=== PATIENT | female | born 1970 | race Caucasian/White ===

== ENCOUNTER 2016-09-06 17:44 | Emergency (ER) | payer MEDICAID ==
[~2016-09-06] VITALS: Ht 157.5 cm; Wt 86.8 kg
[~2016-09-06 17:44] MED LIST: NOCURR
[2016-09-06 19:07] VITALS: BP 116/93
[2016-09-06] MEDS ORDERED: KETOROLAC TROMETHAMINE 60 MG/2 ML VIAL IM ONE (19:30)
== END 2016-09-06 19:59 | disposition home or self-care (01) ==
LOC: EMS 17:45
DX: S16.1XXA Strain of muscle, fascia and tendon at neck level, initial encounter (principal); Z88.1 Allergy status to other antibiotic agents; Z87.891 Personal history of nicotine dependence; V49.40XA Driver injured in collision with unspecified motor vehicles in traffic accident, initial encounter; Y93.89 Activity, other specified; Y92.89 Other specified places as the place of occurrence of the external cause; Y99.8 Other external cause status
CPT/HCPCS: 96372; 99283; J1885

== ENCOUNTER 2018-09-06 07:48 | Emergency (ER) | payer MEDICAID ==
[~2018-09-06] VITALS: Ht 157.5 cm; Wt 76.8 kg
[2018-09-06] MEDS ORDERED: IBUP-1506 PO (07:56)
[2018-09-06] MEDS ORDERED: NAPR250T4 PO (07:56)
[2018-09-06] MEDS ORDERED: FLUCONAZOLE 150 MG TABLET PO ONE (08:15)
[2018-09-06 08:53] VITALS: BP 135/89
== END 2018-09-06 09:00 | disposition home or self-care (01) ==
LOC: EMS 07:49
DX: J02.9 Acute pharyngitis, unspecified (principal); H92.01 Otalgia, right ear; R68.89 Other general symptoms and signs; Z98.51 Tubal ligation status; Z88.8 Allergy status to other drugs, medicaments and biological substances